=== PATIENT | female | born 1985 | race Caucasian/White ===

== ENCOUNTER 2016-11-11 21:20 | Inpatient (IN) | payer BC, OTHER ==
[2015-07-13 19:57] VITALS: BMI 29.9
[2016-11-11] MEDS ORDERED: Lactated Ringer's 1,000 ML IV SCH (22:15)
[2016-11-11] MEDS ORDERED: Sodium Citrate/Citric Acid 15 ml Sol PO ONE (22:30)
[2016-11-11] MEDS ORDERED: cefOXitin IV 2 gm in Dextrose 2 GM/50 ML BAG IVPB ONE ×2 (22:30→23:10)
[2016-11-11 22:31] LABS: BASO % 0.3 % (0.0-2.0); EOS % 0.1 % (0.0-4.0); HEMATOCRIT 34.3 % (34.0-47.0); LYMPH # 1.5 K/uL (1.0-4.3); MEAN CELL VOLUME 84.1 fL (81.0-99.0); MEAN CORPUSCULAR HEMOGLOBIN 28.2 pg (27.0-31.0); MEAN CORPUSCULAR HGB CONC 33.6 g/dL (33.0-37.0); MEAN PLATELET VOLUME 9.8 fL (7.2-11.7); MONO # 0.6 K/uL (0.0-0.8); RED CELL DISTRIBUTION WIDTH 15.8 % (11.5-14.5); WHITE BLOOD COUNT 12.7 K/uL (4.8-10.8)
--- NOTE | 2016-11-11 22:35 | OBHP ---
Datetime: 11/11/2016 22:07 IP Adm Impression: , intrauterine IP Admit Plan: Admit to unit; Initiate Section protocol Admit Comment, IP Provider: 31 y/o @ 36.6 wks GA hx of previous LTCS c/o of abodminal pain a nd tightening constant since 7:30pm. pt reports she was driving back home and felt sudden sharp pain , having to stop what she is doing. Pt reports one epidoes of non bloody and non bilious vomiting aft er eating sandwich earlier today. pt deins any fever, chills, nasue, vomiting. Pt denies any sick con tacts, diarreha, bowel ro bladder complants. Pt dneis any lof, vb, and earlier had decreased mo vments but now is reporting movements. 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 hx of abnormal pap, fibroids, ovarian cyst, STI PMH: denies PSH: denies FHX: non contributory SHX: negative etoh/tobacco/drugs MEDS: PNVS NKDA A/P 31 y/o @ 36.6 wks GA prevous cesearean section amanda in labor -admit to L+D -npo, ivf -admission labs -cont toco and efm -anestesia /or awre -r/b/a/i of tolc vs rltcxs d/w patient , pt opted for rltcxs -type and cross Pelvic Type - PN: Adequate Extremities - PN: Normal Abdomen - PN: Abnormal Back - PN: Normal Breast - PN: Not Done Lungs - PN: Normal Heart - PN: Normal Thyroid - PN: Normal Neurologic - PN: Not Done HEENT - PN: Normal General - PN: Normal Weight - Estimated: 3300 Presentation-Admit: Vertex FHR - Baseline A Provider: 140 Membranes, Provider: Intact Contraction Comments Provider: q 2-5 min Comments, ACOG Physical Exam: Abd; gravid, palpable ctx, incisiconal tenderness mild VE: 1/50/-3 vtx intact, pt reexamined 3cm Gestation - Est Wks by US: 36.6 IP Hx Assessment: The History has been Reviewed and is Current EGA AdmitDate IP: 36.6 Vital Signs Provider: Reviewed IP Chief Complaint: Uterine contractions NICHD Variability Prov Fetus A: Moderate 6-25bpm FHR Category Provider Fetus A: Category I NICHD Decel Fetus A IP Provider: None Dilatation, Provider: 3 Effacement, Provider: 50 Station, Provider: -3 Genitourinary Exam: Normal DTRs - PN: Normal
[2016-11-11 22:41] LABS: CHLORIDE 98 mmol/L (98-107); POTASSIUM 3.7 mmol/L (3.6-5.2); SODIUM 133 mmol/L (132-148)
[2016-11-11 22:43] LABS: ALB/GLOB RATIO 1.2 (1.0-2.1); AMYLASE 136 U/L (30-110); AST/SGOT 17 U/L (14-36); BILIRUBIN,TOTAL 0.5 mg/dL (0.2-1.3); BLOOD UREA NITROGEN 9 mg/dL (7-17); CARBON DIOXIDE 21 mmol/L (22-30); GFR AFRICAN-AMERICAN > 60; TOTAL PROTEIN 6.9 g/dL (6.3-8.3)
[2016-11-11 22:44] LABS: ALKALINE PHOSPHATASE 93 U/L (38-126); ALT/SGPT 19 U/L (9-52); CALCIUM 9.3 mg/dl (8.6-10.4); GLUCOSE,RANDOM 79 mg/dL (65-105)
[2016-11-11 22:51] LABS: RBC URINE 10 /hpf (0-3); URINE BACTERIA MANY (<OCC); URINE BILIRUBIN NEGATIVE (NEGATIVE); URINE BLOOD NEGATIVE (NEGATIVE); URINE COLOR Yellow (YELLOW); URINE GLUCOSE (UA) NORMAL (Normal); URINE KETONE NEGATIVE (NEGATIVE); URINE LEUKOCYTE ESTERASE 3+ Leu/uL (Negative); URINE PROTEIN NEGATIVE (NEGATIVE); URINE UROBILINOGEN NORMAL mg/dL (0.2-1.0); WBC URINE 143 /hpf (0-5)
[2016-11-11] MEDS ORDERED: Morphine 1 mg/ml preservative-free Inj(Duramorph) ONE (23:02)
[2016-11-11] MEDS ORDERED: Sodium Citrate/Citric Acid 15 ml Sol ONE (23:10)
[2016-11-11] MEDS ORDERED: Oxytocin 10 Units/ml Inj ONE (23:10)
[2016-11-11] MEDS ORDERED: Oxytocin 30 UNIT 30 UNITS/500 ML BAG IV SCH (23:59)
--- NOTE | 2016-11-12 00:53 | PCM.SURG1 ---
Surgeon's Initial Post Op Note - Surgeon's Notes Surgeon: Sonali Rojo MD Automation Controls Specialist: Louie Suero MD Type of Anesthesia: Spinal Pre-Operative Diagnosis: intrauterine 36.6 wks GA previous cesearen section, amanda in labor Operative Findings: live female nfant in cephalic presentatin, apgars 9,9 weight of 7bls 4 ounces. pediatrian presnt for delivery. normal appearing uterus , tubes and ovaries bilaterallly. Dr Juanpablo Paredes was blood and plasma laboratory assistant and was present for entire case and essential in gaining etnry, retraction, exposure, holding bladder blade, helping to deliveyr , close all layers and obtain hemostasis. Post-Operative Diagnosis: same as above Operation Performed: Repeat Low transverse cesearen section Specimen/Specimens Removed: placenta Estimated Blood Loss: EBL {In ML}: 800 Blood Products Given: N/A Drains Used: No Drains Date of Surgery/Procedure: 11/11/16 Time of Surgery/Procedure: 23:30
--- NOTE | 2016-11-12 01:12 | OBDS ---
DELIVERY PERSONNEL Delivery Doctor: Patricia Rojo MD Scrub Nurse: Zuly Hanna Counter Intelligence: Lenora Hernandez RN Anesthesiologist: DR SPRINGER MATERNAL INFORMATION Delivery Anesthesia: Spinal Medications in Delivery: PITOCIN 20 UNITS IV Estimated Blood Loss (ml): 800 Placenta Cultured: No Maternal Complications: None Provider Comments: RLTCxS live femlae cephalica presentaiton 9,9 wiegh tof 7lbs 4 ounce s denis 800 ml. double end tenoner operator presnt for deliveyr. no complicaoitns LABOR SUMMARY EDC: 12/03/2016 00:00 No. Babies in Womb: 1 Attempted: No Labor Anesthesia: None LABOR INFORMATION Reason for Induction: Not Applicable Onset of Labor: 11/11/2016 19:00 Oxytocin: N/A Group B Beta Strep: Done, Result Unknown Antibiotics # of Doses: 1 Antibiotics Time of Last Dose: 2319 Steroids Given: None Reason Steroids Not Administered: Not Applicable MEMBRANES Membranes Rupture Method: Artificial Rupture of Membranes: 11/11/2016 23:51 Length of Rupture (hrs): 0.02 Amniotic Fluid Color: Clear Amniotic Fluid Amount: Moderate Amniotic Fluid Odor: Normal STAGES OF LABOR Stage 3 hrs: 0 Stage 3 min: 1 Total Time in Labor hrs: 4 Total Time in Labor min: 53 CSECTION DELIVERY Primary Indication: Repeat Elective CSection Urgency: Elective CSection Incidence: Repeat Labor: No Labor Elective: Nonelective CSection Incision: Lower Uterine Transverse BABY A INFORMATION Delivery Date/Time: 11/11/2016 23:52 Method of Delivery: Born in Route : No : N/A SHOULDER DYSTOCIA BABY A Infant Delivery Date/Time: 11/11/2016 23:52 PRESENTATION/POSITION BABY A Presentation: Cephalic Cephalic Presentation: Vertex Breech Presentation: N/A PLACENTA INFORMATION BABY A Placenta Delivery Time : 11/11/2016 23:53 Placenta Method of Delivery: Manual Removal Placenta Status: Delivered SCORES BABY A Heart Rate 1 min: >100 bpm Resp Effort 1 min: Good Cry Reflex Irritability 1 min: Cough or Sneeze or Pulls Away Muscle Tone 1 min: Active Motion Color 1 min: Body Denning, Extremities Blue SCORE 1 MIN: 9 Heart Rate 5 min: >100 bpm Resp Effort 5 min: Good Cry Reflex Irritability 5 min: Cough or Sneeze or Pulls Away Muscle Tone 5 min: Active Motion Color 5 min: Body Denning, Extremities Blue SCORE 5 MIN: 9 INFORMATION BABY A Gestational Age at Delivery: 36.6 Gestational Status: Infant Outcome : Liveborn Infant Condition : Stable Sex: Female IDENTIFICATION/MEDS BABY A ID Band Number: [id number] ID Band Location: Left Leg; Left Arm Sensor Applied: Yes Sensor Location : Cord Clamp Vitamin K Given : Aquamephyton 1 mg IM; Left Thigh Erythromycin Given: Given Both Eyes WEIGHT/LENGTH BABY A Infant Birthweight (gms): 3295 Infant Weight (lb): 7 Infant Weight (oz): 4 Length Inches: 19.00 Infant Length cms: 48.3 CORD INFORMATION BABY A No. Cord Vessels: 3 Nuchal Cord : N/A Cord Blood Taken: Yes Suction: Mouth; Nose ASSESSMENT BABY A Complications: None Physical Findings at Delivery: Within Normal Limits Infant Respirations: Appears Normal Piercing Mill Operator/ALS Called : Yes Infant Care By: DR ROCA Transferred To: Remains with Mother
[2016-11-12 08:17] LABS: EOS % 0.2 % (0.0-4.0); LYMPH # 1.3 K/uL (1.0-4.3); MONO # 0.5 K/uL (0.0-0.8); RED CELL DISTRIBUTION WIDTH 15.8 % (11.5-14.5)
--- NOTE | 2016-11-12 08:22 | OP ---
PROCEDURE DATE: PREOPERATIVE DIAGNOSES: intrauterine , 36.6 weeks' gestational age, previous section amanda in labor. POSTOPERATIVE DIAGNOSES: intrauterine , 36.6 weeks' gestational age, previous section amanda in labor. OPERATION PERFORMED: Low transverse section. SURGEON: Sonali Rojo MD RECOVERY AGENT: Louie Paredes MD TYPE OF ANESTHESIA: Spinal. OPERATIVE FINDINGS: Live female infant, cephalic presentation. 's 9 and 9. Weight is 7 pounds 4 ounces. Arch Cushion Skiving Machine Operator present for delivery. Normal appearing uterus, tubes and ovaries bilaterally. Dr. Louie Paredes, the surgical coder was present for the entire case and was essential in gaining entry, retraction, exposure, holding the bladder blade, helping delivery and closing all layers and obtaining hemostasis. ESTIMATED BLOOD LOSS: 800 mL. BLOOD PRODUCTS: None. COMPLICATIONS: None. DESCRIPTION OF PROCEDURE: The patient was taken to the operating room, where she was given spinal anesthesia. Once found to be adequate, she was placed on the operating table in dorsal supine position. The patient was prepped and draped in the usual sterile fashion. A time-out confirmed correct patient and correct procedure. A Pfannenstiel skin incision was made with a scalpel and carried in line to the underlying fascia with Bovie. The fascia was incised in the midline and incision was extended laterally with the Blackwell scissors. The inferior aspect of the fascial incision was grasped with Allis and Manuel clamps and underlying rectus muscles were dissected off bluntly. Attention was then turned to the superior aspect which in a similar fashion was grasped with Allis and Manuel clamps and underlying rectus muscle resected off bluntly. The rectus muscle was then bluntly in the midline using 2 Allis clamps to clear space and the peritoneum identified in a clear space. Incision was extended laterally and superiorly until there was good visualization of the lower uterine segment and the bladder. The lower end of the Warren was then inserted and the lower uterine segment was incised in a transverse fashion which appeared to be thin. The uterine incision extended laterally bluntly. There was clearly amniotic fluid noted. The uterine incision was extended laterally with the bandage scissors. The surgeon's hand entered the uterine incision. The infant's head was delivered atraumatically followed by the delivery of the shoulders, followed by the delivery of the body. Both oral and nasal passages of the baby were bulb suctioned. The umbilical cord was clamped and cut. The baby was handed off to the waiting chronometer assembler and adjuster. Cord blood and cord gases were collected and sent x2. The placenta was then delivered manually. The uterus was exteriorized and cleared for all clots and debris. The uterine incision was repaired with 0-Vicryl in running continuous locked fashion. A second layer of the same suture was used to close the uterus in a running imbricating manner. There was good hemostasis at the uterine incision site. There were normal tubes and ovaries bilaterally. The uterus was then returned to the abdomen and paracolic gutters were cleared off all clots and debris. The peritoneum was reapproximated and closed with 2-0 chromic in a running continuous fashion. The rectus was reapproximated and closed with 2-0 chromic in interrupted manner. The fascia was reapproximated and closed with 0-Vicryl in a running continuous fashion. Subcutaneous space was closed with 2-0 plain in an interrupted manner and the skin was reapproximated and closed with 3-0 Monocryl in a running subcuticular fashion. At the end of the procedure, all needle, sponge, and instrument counts were noted to be correct. The patient tolerated the procedure well and was transferred to the recovery room in stable condition. Sonali Rojo MD
[2016-11-12] MEDS: Oxycodone/Acetaminophen 5/325 mg Tab PO PRN ×3 (08:26→22:43)
[2016-11-12 08:28] LABS: BASO % 0.3 % (0.0-2.0); HEMATOCRIT 29.8 % (34.0-47.0); LYMPH % 11.9 % (20.0-40.0); MEAN CELL VOLUME 84.6 fL (81.0-99.0); MEAN CORPUSCULAR HEMOGLOBIN 28.3 pg (27.0-31.0); MEAN CORPUSCULAR HGB CONC 33.5 g/dL (33.0-37.0); MEAN PLATELET VOLUME 9.8 fL (7.2-11.7); MONO % 4.5 % (0.0-10.0); NRBC % 0.1 % (0.0-2.0); WHITE BLOOD COUNT 11.1 K/uL (4.8-10.8)
[2016-11-12 08:31] LABS: CHLORIDE 100 mmol/L (98-107)
[2016-11-12 08:32] LABS: POTASSIUM 4.3 mmol/L (3.6-5.2); SODIUM 135 mmol/L (132-148)
[2016-11-12] MEDS: cefOXitin IV 1 gm in Dextrose 1 GM/50 ML BAG IVPB SCH ×2 (08:32→17:35)
[2016-11-12 08:34] LABS: GFR AFRICAN-AMERICAN > 60
[2016-11-12 08:35] LABS: BLOOD UREA NITROGEN 7 mg/dL (7-17); CALCIUM 8.7 mg/dl (8.6-10.4); CARBON DIOXIDE 26 mmol/L (22-30); GLUCOSE,RANDOM 67 mg/dL (65-105)
[2016-11-12] MEDS: Prenatal Multivit/Folic Acid/Iron Tab PO SCH (10:04)
[2016-11-12] MEDS: Simethicone 80 mg Chewtab PO SCH ×4 (10:04→22:43)
[2016-11-12] MEDS ORDERED: Bisacodyl 5mg EC Tab PO ONE (23:34)
[2016-11-13] MEDS: cefOXitin IV 1 gm in Dextrose 1 GM/50 ML BAG IVPB SCH (01:12)
[2016-11-13] MEDS: Oxycodone/Acetaminophen 5/325 mg Tab PO PRN ×4 (07:43→22:27)
[2016-11-13] MEDS: Simethicone 80 mg Chewtab PO SCH ×4 (10:24→22:32)
[2016-11-13] MEDS: Prenatal Multivit/Folic Acid/Iron Tab PO SCH (10:25)
[2016-11-13 20:22] VITALS: O2SAT 99
[2016-11-14] MEDS: Oxycodone/Acetaminophen 5/325 mg Tab PO PRN (08:19)
[2016-11-14] MEDS: Prenatal Multivit/Folic Acid/Iron Tab PO SCH (09:13)
[2016-11-14] MEDS: Simethicone 80 mg Chewtab PO SCH (09:13)
[2016-11-14] MEDS ORDERED: Influenza Vaccine 60 mcg/0.5 mL SYR (4YR UP) IM ONE (10:00)
[2016-11-14 18:15] VITALS: BP 112/64; PULSE 100; RESP 18; TEMP 98.1
--- NOTE | 2016-11-14 22:28 | OBPPN ---
Datetime: 11/14/2016 22:23 PP Pain Prov: Within normal limits PP Nausea Prov: Denies PP Flatus Prov: Yes PP BM Prov: Yes PP Breasts Prov: Normal PP Heart Prov: Normal PP Lungs Prov: Normal PP Abdomen/Uterus Prov: Normal PP Lochia Prov: Normal PP Vulva/Perineum Prov: Normal PP CVA Tenderness Prov: Normal PP Extremities Prov: Normal PP C/S Incision Prov: Normal PP Progress Prov: Normal PP Impression Prov: Normal progression PP Plan Prov: Discharge PP Progress Note Prov: Pt seen and examined delayed entry. pt ambuaitng, voidng, passing flatus, julito erating reulga diet, breast feeding VSS PE gen nad, aaox 3 [address] CTAB/l CVS: RRR< +S1/S2 ABD: son ftn ND, +BS, no ugarind, no rebound tendner, no rigidty incsion c/d/i fudnus;firm, bwleo level of umbilcs ext ;n ocalft tender b/ll A/p s/p RLTCS POD #3 doing well, stable for d/c -s/p prhogm d/c ohme p[recaiton given rto 1 week IP PP Procedures: None Vital Signs Provider PP: Reviewed; Within Normal Limits
--- NOTE | 2016-11-14 22:28 | OBDCSUM ---
Datetime: 11/14/2016 07:17 Discharge Time: 11/14/2016 14:00 Follow up in weeks, Provider: 11-21-16 Contraception after Delivery: Not Planning to Use
== END 2016-11-14 14:00 | disposition home or self-care (01) | DRG 766 ==
LOC: C.EROB 21:20 → C.4D 22:14 → C.4M 11-12 03:57
PROVIDERS: ADMIT Obstetrics & Gynecology; ATTEND Obstetrics & Gynecology
PROC: 10D00Z1 Extraction of Products of Conception, Low, Open Approach (ICD-10-PCS; principal; 2016-11-11)
DX: O60.14X0 Preterm labor third trimester with preterm delivery third trimester, not applicable or unspecified (principal); O34.211 Maternal care for low transverse scar from previous cesarean delivery; Z37.0 Single live birth; Z3A.36 36 weeks gestation of pregnancy